=== PATIENT | female | born 1975 | race Caucasian/White ===

== ENCOUNTER 2021-01-23 15:36 | Day surgery (SDC) | payer BC ==
[2021-01-23] MEDS ORDERED: BUPIVACAINE 0.5% VIAL IJ ONE (15:37)
[2021-01-23] MEDS ORDERED: Depo-Medrol 40 MG/ML IM ONE (15:37)
[2021-01-23] MEDS ORDERED: Lactated Ringers 1,000 ML IV ONE (16:05)
[2021-01-23] MEDS ORDERED: DIPRIVAN 200 MG/20 ML IV ONE ×2 (18:02→18:14)
--- NOTE | 2021-01-23 20:34 | XRAY ---
Indication: Bilateral SI joint injection. Intraoperative fluoroscopy provided for 22 seconds. 4 digital spot images submitted for interpretation demonstrates posterior needle tip projecting over the inferior left and right SI joints. Correlate with intraoperative findings/report.
--- NOTE | 2021-01-23 20:44 | XRAY ---
Indication: Bilateral greater trochanter bursa injections. Intraoperative fluoroscopy provided for 27 seconds. 2 digital spot images obtained prone submitted for interpretation demonstrates needle tips just lateral to the left and right greater trochanter. Small amount of contrast injected for both needle tip placement. Correlate with intraoperative findings/report.
--- NOTE | 2021-01-24 09:12 | XRAY ---
27 seconds fluoroscopy time in surgery for injections of bilateral greater trochanter bursa.
--- NOTE | 2021-01-24 09:12 | XRAY ---
22 seconds fluoroscopy time in surgery for bilateral injections of the SI joints.
== END 2021-01-23 18:35 | disposition home or self-care (01) ==
LOC: SDC-PAIN 15:36
PROVIDERS: ATTEND Psychiatry & Neurology Pain Medicine
DX: M46.1 Sacroiliitis, not elsewhere classified (principal); M70.62 Trochanteric bursitis, left hip; M70.61 Trochanteric bursitis, right hip; I10 Essential (primary) hypertension; M19.90 Unspecified osteoarthritis, unspecified site; K21.9 Gastro-esophageal reflux disease without esophagitis; G25.81 Restless legs syndrome; F32.9 Major depressive disorder, single episode, unspecified; Z79.899 Other long term (current) drug therapy
CPT/HCPCS: 20610; 27096; 72202; 73521; 77002; J1030; J2704; Q9966; G0260

== ENCOUNTER 2021-08-14 13:17 | Day surgery (SDC) | payer BC ==
[2021-08-14] MEDS ORDERED: LIDOCAINE HCL 2% 100 MG/5 ML IJ ONE (13:18)
[2021-08-14] MEDS ORDERED: Lactated Ringers 1,000 ML IV ONE (15:10)
[2021-08-14] MEDS ORDERED: DIPRIVAN 200 MG/20 ML IV ONE (15:27)
--- NOTE | 2021-08-14 18:42 | XRAY ---
Indication: Bilateral L4-S1 MBB. Intraoperative fluoroscopy provided for 18 seconds. Single digital spot image submitted for interpretation demonstrates posterior needle tips projecting over the expected left and right L4-S1 nerve roots. Correlate with intraoperative findings/report.
--- NOTE | 2021-08-15 09:17 | XRAY ---
18 seconds fluoroscopy time in surgery for bilateral L4-S1 MBB.
== END 2021-08-14 15:55 | disposition home or self-care (01) ==
LOC: SDC-PAIN 13:17
PROVIDERS: ATTEND Psychiatry & Neurology Pain Medicine
DX: M47.816 Spondylosis without myelopathy or radiculopathy, lumbar region (principal); I10 Essential (primary) hypertension; Z79.899 Other long term (current) drug therapy
CPT/HCPCS: 64493; 64494; 72020; 77002; J2704

== ENCOUNTER 2021-09-18 14:00 | Day surgery (SDC) | payer BC ==
[2021-09-18] MEDS ORDERED: Depo-Medrol 40 MG/ML IM ONE (14:01)
[2021-09-18] MEDS ORDERED: BUPIVACAINE 0.5% VIAL IJ ONE (14:01)
[2021-09-18] MEDS ORDERED: Lactated Ringers 1,000 ML IV ONE ×2 (14:51→15:39)
[2021-09-18] MEDS ORDERED: DIPRIVAN 200 MG/20 ML IV ONE ×2 (15:32→15:40)
--- NOTE | 2021-09-18 16:42 | XRAY ---
26 seconds fluoroscopy time in surgery for bilateral L4-S1 MBB.
--- NOTE | 2021-09-18 16:43 | XRAY ---
Indication: Bilateral L4-S1 MBB. Intraoperative fluoroscopy provided for 26 seconds. Single digital spot image submitted for interpretation demonstrates posterior needle tips projecting over the expected left and right L4-S1 nerve roots. Correlate with intraoperative findings/report.
== END 2021-09-18 16:03 | disposition home or self-care (01) ==
LOC: SDC-PAIN 14:00
PROVIDERS: ATTEND Psychiatry & Neurology Pain Medicine
DX: M47.816 Spondylosis without myelopathy or radiculopathy, lumbar region (principal); I10 Essential (primary) hypertension; Z79.899 Other long term (current) drug therapy
CPT/HCPCS: 64493; 64494; 72020; 77002; J1030; J2704

== ENCOUNTER 2021-10-16 10:38 | Day surgery (SDC) | payer BC ==
[2021-10-16] MEDS ORDERED: Depo-Medrol 40 MG/ML IM ONE (10:39)
[2021-10-16] MEDS ORDERED: BUPIVACAINE 0.5% VIAL IJ ONE (10:39)
[2021-10-16] MEDS ORDERED: Lactated Ringers 1,000 ML IV ONE (12:16)
[2021-10-16] MEDS ORDERED: DIPRIVAN 200 MG/20 ML IV ONE (12:38)
[2021-10-16] MEDS ORDERED: Xylocaine-Mpf 2% 5 Ml Vial ONE (12:40)
--- NOTE | 2021-10-16 13:59 | XRAY ---
Indication: Left SI joint injection. Intraoperative fluoroscopy provided for 20 seconds. 2 digital spot images submitted for interpretation demonstrates posterior needle tip projecting over the inferior left SI joint. Correlate with intraoperative findings/report.
--- NOTE | 2021-10-16 13:59 | XRAY ---
Indication: Left greater trochanter bursa injection. Intraoperative fluoroscopy provided for 16 seconds. Single digital spot image obtained prone submitted for interpretation demonstrates needle tip lateral to the left greater trochanter. Small amount of contrast injected for needle tip placement. Correlate with intraoperative findings/report.
--- NOTE | 2021-10-16 14:13 | XRAY ---
16 seconds fluoroscopy time in surgery for injection of the greater trochanter of the left hip.
--- NOTE | 2021-10-16 14:13 | XRAY ---
20 seconds fluoroscopy time in surgery for injection of the left SI joint.
== END 2021-10-16 13:08 | disposition home or self-care (01) ==
LOC: SDC-PAIN 10:38
PROVIDERS: ATTEND Psychiatry & Neurology Pain Medicine
DX: M46.1 Sacroiliitis, not elsewhere classified (principal); M16.12 Unilateral primary osteoarthritis, left hip; Z79.899 Other long term (current) drug therapy
CPT/HCPCS: 20610; 27096; 72020; 73501; 77002; J1030; J2704; Q9966; G0260

== ENCOUNTER 2022-04-09 12:45 | Day surgery (SDC) | payer BC ==
[2022-04-09] MEDS ORDERED: Depo-Medrol 40 MG/ML IM ONE (12:46)
[2022-04-09] MEDS ORDERED: Marcaine Mpf 0.5% Vial 30 Ml IJ ONE (12:46)
[2022-04-09] MEDS ORDERED: DIPRIVAN 200 MG/20 ML IV ONE ×2 (13:55→14:10)
[2022-04-09] MEDS ORDERED: Lactated Ringers 1,000 ML IV ONE (15:47)
--- NOTE | 2022-04-09 16:38 | XRAY ---
Indication: Left greater trochanter bursa and bilateral SI joint injection. Intraoperative fluoroscopy provided for 36 seconds. 5 digital spot image obtained prone submitted for interpretation demonstrates needle tip lateral to the left greater trochanter with small amount of contrast injected for needle tip placement. Additional posterior needle tip projects over the inferior left and right SI joint. Correlate with intraoperative findings/report.
--- NOTE | 2022-04-10 09:20 | XRAY ---
36 seconds fluoroscopy time in surgery for injections of the left greater trochanter and both SI joints.
== END 2022-04-09 14:21 | disposition home or self-care (01) ==
LOC: SDC-PAIN 12:45
PROVIDERS: ATTEND Psychiatry & Neurology Pain Medicine
DX: M46.1 Sacroiliitis, not elsewhere classified (principal); M16.12 Unilateral primary osteoarthritis, left hip; Z79.899 Other long term (current) drug therapy
CPT/HCPCS: 20610; 27096; 73501; 77002; J1030; J2704; Q9966; G0260

== ENCOUNTER 2022-06-04 13:40 | Day surgery (SDC) | payer BC ==
[2022-06-04] MEDS ORDERED: BUPIVACAINE 0.5% VIAL IJ ONE (13:41)
[2022-06-04] MEDS ORDERED: LIDOCAINE HCL 1% 50 MG/5 ML VL PF IJ ONE (13:41)
[2022-06-04] MEDS ORDERED: Depo-Medrol 40 MG/ML IM ONE (13:41)
[2022-06-04] MEDS ORDERED: DIPRIVAN 200 MG/20 ML IV ONE (15:41)
[2022-06-04] MEDS ORDERED: Lactated Ringers 1,000 ML IV ONE (16:43)
--- NOTE | 2022-06-04 17:02 | XRAY ---
Indication: Right L4-S1 RFA. Intraoperative fluoroscopy provided for 33 seconds. 4 digital spot images submitted for interpretation demonstrates posterior needle tips projecting over the expected right L4-S1 nerve roots. Correlate with intraoperative findings/report.
--- NOTE | 2022-06-04 17:04 | XRAY ---
33 seconds of fluoroscopy was used in surgery for a right L4-S1 RFA.
== END 2022-06-04 16:02 | disposition home or self-care (01) ==
LOC: SDC-PAIN 13:40
PROVIDERS: ATTEND Psychiatry & Neurology Pain Medicine
DX: M47.816 Spondylosis without myelopathy or radiculopathy, lumbar region (principal); Z79.899 Other long term (current) drug therapy
CPT/HCPCS: 64635; 64636; 72100; 77002; J1030; J2001; J2704

== ENCOUNTER 2022-06-11 13:47 | Day surgery (SDC) | payer BC ==
[2022-06-11] MEDS ORDERED: Decadron 4 MG INJ IV ONE (13:48)
[2022-06-11] MEDS ORDERED: Marcaine Mpf 0.5% Vial 30 Ml IJ ONE ×2 (13:48)
[2022-06-11] MEDS ORDERED: Depo-Medrol 40 MG/ML IM ONE ×2 (13:48)
[2022-06-11] MEDS ORDERED: Xylocaine 1% Vial 30 ML PF IJ ONE ×2 (13:48)
[2022-06-11] MEDS ORDERED: DIPRIVAN 200 MG/20 ML IV ONE ×2 (16:03→16:09)
[2022-06-11] MEDS ORDERED: Lactated Ringers 1,000 ML IV ONE (16:45)
--- NOTE | 2022-06-11 18:55 | XRAY ---
Indication: Left L4-S1 RFA. Intraoperative fluoroscopy provided for 44 seconds. 5 digital spot images submitted for interpretation demonstrates posterior needle tips projecting over the expected left L4-S1 nerve roots. Correlate with intraoperative findings/report.
--- NOTE | 2022-06-12 08:55 | XRAY ---
44 seconds fluoroscopy time in surgery for left L4-S1 RFA.
== END 2022-06-11 16:45 | disposition home or self-care (01) ==
LOC: SDC-PAIN 13:47
PROVIDERS: ATTEND Psychiatry & Neurology Pain Medicine
DX: M47.816 Spondylosis without myelopathy or radiculopathy, lumbar region (principal); Z79.899 Other long term (current) drug therapy
CPT/HCPCS: 64635; 64636; 72100; 77002; J1030; J1100; J2001; J2704

== ENCOUNTER 2023-02-18 08:19 | Day surgery (SDC) | payer BC ==
[2023-02-18] MEDS ORDERED: BUPIVACAINE 0.5% VIAL IJ ONE (08:20)
[2023-02-18] MEDS ORDERED: Depo-Medrol 40 MG/ML IM ONE (08:20)
[2023-02-18] MEDS ORDERED: DIPRIVAN 200 MG/20 ML IV ONE (10:25)
--- NOTE | 2023-02-18 13:10 | XRAY ---
Indication: Bilateral SI joint injection. Intraoperative fluoroscopy provided for 21 seconds. 7 digital spot image submitted for interpretation demonstrates posterior needle tip projecting over the expected left and right SI joint. Correlate with intraoperative findings/report.
[2023-02-18] MEDS ORDERED: Lactated Ringers 1,000 ML IV ONE (13:33)
--- NOTE | 2023-02-18 13:54 | XRAY ---
21 seconds of fluoroscopy was used in surgery for a bilateral sacroiliac joint injection.
== END 2023-02-18 10:50 | disposition home or self-care (01) ==
LOC: SDC-PAIN 08:19
PROVIDERS: ATTEND Psychiatry & Neurology Pain Medicine
DX: M46.1 Sacroiliitis, not elsewhere classified (principal); Z79.899 Other long term (current) drug therapy
CPT/HCPCS: 27096; 72202; 77002; J1030; J2704; G0260

== ENCOUNTER 2023-09-16 07:27 | Day surgery (SDC) | payer BC ==
[2023-09-16] MEDS ORDERED: Depo-Medrol 40 MG/ML IM ONE (07:28)
[2023-09-16] MEDS ORDERED: BUPIVACAINE 0.5% VIAL IJ ONE (07:28)
[2023-09-16] MEDS ORDERED: DIPRIVAN 200 MG/20 ML IV ONE (08:50)
[2023-09-16] MEDS ORDERED: Lactated Ringers 1,000 ML IV ONE (09:20)
--- NOTE | 2023-09-16 09:50 | XRAY ---
Indication: Bilateral SI joint injection. Intraoperative fluoroscopy provided for 26 seconds. 4 digital spot images submitted for interpretation demonstrates posterior needle tip projecting over the left and right SI joint. Correlate with intraoperative findings/report.
--- NOTE | 2023-09-16 10:04 | XRAY ---
26 seconds of fluoroscopy was used in surgery for a bilateral sacroiliac joint injection.
== END 2023-09-16 09:20 | disposition home or self-care (01) ==
LOC: SDC-PAIN 07:27
PROVIDERS: ATTEND Psychiatry & Neurology Pain Medicine
DX: M46.1 Sacroiliitis, not elsewhere classified (principal)
CPT/HCPCS: 27096; 72202; 77002; J1030; J2704; Q9966; G0260

== ENCOUNTER 2024-05-05 11:37 | Day surgery (SDC) | payer BC ==
[2024-05-05] MEDS ORDERED: Depo-Medrol 40 MG/ML IM ONE (11:38)
[2024-05-05] MEDS ORDERED: BUPIVACAINE 0.5% VIAL IJ ONE (11:38)
[2024-05-05] MEDS ORDERED: DIPRIVAN 200 MG/20 ML IV ONE (14:01)
[2024-05-05] MEDS ORDERED: Lactated Ringers 1,000 ML IV ONE (14:05)
--- NOTE | 2024-05-05 15:07 | XRAY ---
Indication: Right hip injection. Intraoperative fluoroscopy provided for 13 seconds. Single digital spot image submitted for interpretation demonstrates needle tip projecting lateral to right femur neck. Small amount of contrast injected for needle tip placement. Correlate with intraoperative findings/report.
--- NOTE | 2024-05-10 09:21 | XRAY ---
13 seconds of fluoroscopy was used in surgery for a right intra-articular hip injection.
== END 2024-05-05 14:21 | disposition home or self-care (01) ==
LOC: SDC-PAIN 11:37
PROVIDERS: ATTEND Psychiatry & Neurology Pain Medicine
DX: M16.11 Unilateral primary osteoarthritis, right hip (principal)
CPT/HCPCS: 20610; 73501; 77002; J2704; Q9966

== ENCOUNTER 2024-07-06 13:34 | Day surgery (SDC) | payer BC ==
[2024-07-06] MEDS ORDERED: BUPIVACAINE 0.5% VIAL IJ ONE (13:35)
[2024-07-06] MEDS ORDERED: Depo-Medrol 40 MG/ML IM ONE (13:35)
[2024-07-06] MEDS ORDERED: LIDOCAINE HCL 1% AMPUL 5 ML IJ ONE (13:35)
[2024-07-06] MEDS ORDERED: DIPRIVAN 200 MG/20 ML IV ONE (15:49)
--- NOTE | 2024-07-06 17:17 | XRAY ---
Indication: Right L4-S1 RFA. Intraoperative fluoroscopy provided for 14 second. 4 digital spot image submitted for interpretation demonstrates posterior needle tips projecting over expected right L4-S1 nerve roots. Correlate with intraoperative findings/report.
--- NOTE | 2024-07-07 09:10 | XRAY ---
14 seconds of fluoroscopy was used in surgery for a right L4-S1 RFA.
== END 2024-07-06 16:24 ==
LOC: SDC-PAIN 13:34
PROVIDERS: ATTEND Psychiatry & Neurology Pain Medicine
DX: M47.816 Spondylosis without myelopathy or radiculopathy, lumbar region (principal)
CPT/HCPCS: 64635; 64636; 72100; 77002; J2704

== ENCOUNTER 2024-07-07 11:44 | Day surgery (SDC) | payer BC ==
[2024-07-07] MEDS ORDERED: LIDOCAINE HCL 1% AMPUL 5 ML IJ ONE (11:45)
[2024-07-07] MEDS ORDERED: Depo-Medrol 40 MG/ML IM ONE (11:45)
[2024-07-07] MEDS ORDERED: BUPIVACAINE 0.5% VIAL IJ ONE (11:45)
[2024-07-07] MEDS ORDERED: DIPRIVAN 200 MG/20 ML IV ONE (13:02)
--- NOTE | 2024-07-07 14:43 | XRAY ---
Indication: Left L4-S1 RFA. Intraoperative fluoroscopy provided for 19 seconds. 3 digital spot image submitted for interpretation demonstrates posterior needle tips projecting over expected left L4-S1 nerve roots. Correlate with intraoperative findings/report.
--- NOTE | 2024-07-07 14:46 | XRAY ---
19 seconds of fluoroscopy was used in surgery for a left L4-S1 RFA.
== END 2024-07-07 13:40 | disposition home or self-care (01) ==
LOC: SDC-PAIN 11:44
PROVIDERS: ATTEND Psychiatry & Neurology Pain Medicine
DX: M47.816 Spondylosis without myelopathy or radiculopathy, lumbar region (principal)
CPT/HCPCS: 64635; 64636; 72100; 77002; J2704

== ENCOUNTER 2024-09-21 11:25 | Day surgery (SDC) | payer BC ==
[2024-09-21] MEDS ORDERED: LIDOCAINE HCL 2% 100 MG/5 ML IJ ONE (11:26)
[2024-09-21] MEDS ORDERED: dexAMETHasone sodium phosphate IJ ONE (11:26)
[2024-09-21] MEDS ORDERED: propofoL IV ONE ×2 (13:16→13:25)
--- NOTE | 2024-09-21 14:36 | XRAY ---
Indication: Left C2-C4 MBB Intraoperative fluoroscopy was provided for 15 seconds. 3 digital spot images submitted for interpretation demonstrates posterior needle tips projecting over expected left C2-C4 nerve roots. Correlate with intraoperative findings/report.
--- NOTE | 2024-09-21 14:38 | XRAY ---
15 seconds of fluoroscopy was used in surgery for a left C2-C4 MBB.
== END 2024-09-21 13:56 | disposition home or self-care (01) ==
LOC: SDC-PAIN 11:25
PROVIDERS: ATTEND Psychiatry & Neurology Pain Medicine
DX: M47.812 Spondylosis without myelopathy or radiculopathy, cervical region (principal)
CPT/HCPCS: 64490; 64491; 72040; 77002; J1100; J2704

== ENCOUNTER 2024-10-20 10:18 | Day surgery (SDC) | payer BC ==
[2024-10-20] MEDS ORDERED: BUPIVACAINE 0.5% VIAL IJ ONE (10:19)
[2024-10-20] MEDS ORDERED: dexAMETHasone sodium phosphate IJ ONE (10:19)
[2024-10-20] MEDS ORDERED: Lactated Ringers 500 ML IV ONE (10:31)
[2024-10-20] MEDS ORDERED: propofoL IV ONE (11:45)
--- NOTE | 2024-10-20 20:57 | XRAY ---
Indication: Left C2-C4 MBB. Intraoperative fluoroscopy provided for 10. 2 digital spot image submitted for interpretation demonstrates posterior needle tips projecting over expected left C2-C4 nerve roots. Correlate with intraoperative findings/report.
--- NOTE | 2024-10-20 21:54 | XRAY ---
10 seconds of fluoroscopy was used in surgery for a left C2-C4 MBB.
== END 2024-10-20 12:15 | disposition home or self-care (01) ==
LOC: SDC-PAIN 10:18
PROVIDERS: ATTEND Psychiatry & Neurology Pain Medicine
DX: M47.812 Spondylosis without myelopathy or radiculopathy, cervical region (principal)
CPT/HCPCS: 64490; 64491; 72040; 77002; J1100; J2704